=== PATIENT | male | born 1965 | race Caucasian/White ===

== ENCOUNTER 2018-10-25 08:50 | Emergency (ER) | payer MEDICAID ==
[~2018-10-25] VITALS: Ht 170.2 cm; Wt 59.0 kg
[2018-10-25 09:21] LABS: URINE BLOOD NEGATIVE (Negative); URINE CLARITY CLEAR; URINE COLOR YELLOW; URINE GLUCOSE-RANDOM NEGATIVE (Negative); URINE KETONES 1+ (Negative); URINE LEUKOCYTES NEGATIVE (Negative); URINE NITRITE NEGATIVE (Negative); URINE PROTEIN 1+ (Negative); URINE SPECIFIC GRAVITY 1.015 (1.005-1.030); URINE UROBILINOGEN 0.2 E.U./dl (0.2-1.0)
[2018-10-25 09:23] LABS: HEMATOCRIT 45.8 % (42.0-52.0); HEMOGLOBIN 15.6 gm/dL (14.0-18.0); MCH 31.2 pg (26.0-34.0); MCHC 34.1 g/dL (28.0-37.0); MCV 91.4 fL (80.0-100.0); MPV 6.9 fl. (7.2-11.1); RBC 5.01 mil/uL (4.50-6.00); RDW-CV 13.3 % (10.5-14.5); WBC 6.1 thou/uL (4.0-11.0)
[2018-10-25 09:27] LABS: ICTOTEST (BILI CONFIRMATORY) Negative (Negative); URINE BILIRUBIN 1+ (Negative)
[2018-10-25 09:29] LABS: AMP/METHAMP Negative (Negative); BARBITURATES Negative (Negative); BENZODIAZEPINES Negative (Negative); COCAINE Negative (Negative); METHADONE Negative (Negative); OPIATES Negative (Negative); PCP Negative (Negative); THC Negative (Negative)
[2018-10-25 09:39] LABS: ACETAMINOPHEN < 2 ug/mL (10-30); ALCOHOL < 10 mg/dL (<10); SALICYLATE 6.8 mg/dL (2.8-20.0)
[2018-10-25 10:15] LABS: ALBUMIN 4.4 g/dL (3.4-5.0); CALCIUM 9.7 mg/dL (8.5-10.1); CREATININE 1.3 mg/dL (0.6-1.3); POTASSIUM 3.8 mmol/L (3.5-5.1); TOTAL BILIRUBIN 0.7 mg/dL (<0.1-1.0); TOTAL PROTEIN 8.7 g/dL (6.4-8.2)
[2018-10-26 09:11] LABS: HEPATITIS B SURFACE AG Negative (Negative)
--- NOTE | 2018-10-26 15:58 | EKG ---
[place] [address] ELECTROCARDIOGRAM REPORT Name: ARACELYHECTOR Weinstein Room: [facility]#: [id number] Admission: 10/25/18 Attend Phys: Discharge: Date of : 61 Report #: [id number] THIS REPORT FOR: //name// [facility] ED Test Date: 2018-10-26 Test Time: 03:08:30 Pat Name: HECTOR JESSICA Department: Room: Gender: [employer]: [employer] BISHOP : 1965 Requested By: John Davis Order Number: [id number] : Curtis Wright Measurements Intervals [place] Rate: 95 P: 63 ID: [id number] QRS: 52 QRSD: 74 T: 64 QT: 367 QTc: 462 Interpretive Statements Sinus rhythm Abnormal R-wave progression, early transition Minimal ST elevation, anterior leads No previous ECG available for comparison Electronically Signed On 10-26-2018 15:58:13 CDT by Curtis Wright [email or web address] <ELECTRONICALLY SIGNED> By: Curtis Wright MD, [facility] 10/26/18 [id number] Curtis Wright MD, FACC /EPI
[2018-10-26 18:54] VITALS: BP 117/67
== END 2018-10-26 18:54 ==
LOC: M.ERS 08:50
PROVIDERS: Personal Emergency Response Attendant
DX: R45.851 Suicidal ideations (principal); F31.9 Bipolar disorder, unspecified; F20.9 Schizophrenia, unspecified; Z88.8 Allergy status to other drugs, medicaments and biological substances

== ENCOUNTER 2018-12-19 10:26 | Emergency (ER) | payer MEDICAID ==
[~2018-12-19] VITALS: Ht 170.2 cm; Wt 61.2 kg
[2018-12-19] MEDS ORDERED: TRAZODONE HCL100 MG PO (10:41)
[2018-12-19] MEDS ORDERED: KLONOPIN0.5 MG PO (10:41)
[2018-12-19 10:50] VITALS: BP 147/86
== END 2018-12-19 10:51 | disposition home or self-care (01) ==
LOC: M.ERS 10:26
DX: F41.9 Anxiety disorder, unspecified (principal); F31.9 Bipolar disorder, unspecified; F20.9 Schizophrenia, unspecified; Z88.8 Allergy status to other drugs, medicaments and biological substances